=== PATIENT | male | born 1955 | race Caucasian/White ===

== ENCOUNTER → 2018-08-30 | Outpatient (CLI) | payer OTHER | END | disposition home or self-care (01) | LOC: M.MRI 08-02 06:43 → M.RAD 12:54 | DX: S73.191A Other sprain of right hip, initial encounter (principal); S76.311A Strain of muscle, fascia and tendon of the posterior muscle group at thigh level, right thigh, initial encounter; M24.151 Other articular cartilage disorders, right hip; M11.251 Other chondrocalcinosis, right hip; M76.02 Gluteal tendinitis, left hip; M85.48 Solitary bone cyst, other site; S46.012A Strain of muscle(s) and tendon(s) of the rotator cuff of left shoulder, initial encounter; X58.XXXA Exposure to other specified factors, initial encounter; Y93.89 Activity, other specified; Y92.89 Other specified places as the place of occurrence of the external cause; Y99.8 Other external cause status ==

== ENCOUNTER 2019-09-10 21:01 | Emergency (ER) | payer OTHER, MEDICARE ==
[~2019-09-10] VITALS: Ht 172.7 cm; Wt 79.4 kg
[2019-09-10] MEDS ORDERED: MOBIC7.5 MG PO (21:14)
[2019-09-10] MEDS ORDERED: CARISOPRODOL 3350 M1 PO (21:15)
[2019-09-10] MEDS ORDERED: OMEPRAZOLE 20 M20 M1 PO (21:15)
[2019-09-10] MEDS ORDERED: LORCET 5-325 M1 EACH PO (21:15)
[2019-09-10 21:35] LABS: ABSOLUTE BASOPHILS 0.1 thou/uL (0.0-0.2); ABSOLUTE EOSINOPHILS 0.1 thou/uL (0.0-0.7); ABSOLUTE MONOCYTES 1.7 thou/uL (0.0-1.2); ABSOLUTE NEUTROPHILS 9.4 thou/uL (1.6-8.1); BASOPHILS 0.6 %; EOSINOPHILS 0.6 %; HEMATOCRIT 38.5 % (42.0-52.0); HEMOGLOBIN 13.5 gm/dL (14.0-18.0); LYMPHOCYTES 15.4 %; MCH 30.4 pg (26.0-34.0); MCHC 35.2 g/dL (28.0-37.0); MCV 86.3 fL (80.0-100.0); MONOCYTES 12.5 %; MPV 6.1 fl. (7.2-11.1); NUCLEATED RBCS 0 /100WBC; PLATELET COUNT* 252 thou/uL (150-400); POLYS 70.9 %; RBC 4.46 mil/uL (4.50-6.00); RDW-CV 12.7 % (10.5-14.5); WBC 13.2 thou/uL (4.0-11.0)
[2019-09-10 21:46] LABS: ALBUMIN 3.4 g/dL (3.4-5.0); CALCIUM 9.1 mg/dL (8.5-10.1); CREATININE 1.1 mg/dL (0.6-1.3); TOTAL BILIRUBIN 0.5 mg/dL (<0.1-1.0); TOTAL PROTEIN 6.9 g/dL (6.4-8.2)
[2019-09-10 22:23] LABS: POTASSIUM 3.7 mmol/L (3.5-5.1)
[2019-09-10 22:38] LABS: ESR (SEDRATE) 25 mm/hr (0-20)
[2019-09-10] MEDS ORDERED: HYDROCODON-ACE1 EAC8 PO (23:17)
[2019-09-10] MEDS ORDERED: CLEOCIN HCL150 M1 PO (23:17)
[2019-09-10 23:46] LABS: TOTAL CELL COUNT >66000 /mm3
[2019-09-10 23:51] LABS: BF RBC 9588 /mm3
[2019-09-10 23:57] LABS: CLARITY TURBID; TOTAL VOLUME 35 ml
[2019-09-11 00:02] LABS: SOURCE LEFT KNEE
[2019-09-11 00:05] VITALS: BP 115/78
[2019-09-11 00:22] LABS: BF LYMPHOCYTES 2 %; BF MONOCYTES 5 %; BF POLYS 93 %
[2019-09-12 15:10] LABS: BODY FLUID LDH 554 IU/L (())
== END 2019-09-11 00:05 | disposition home or self-care (01) ==
LOC: M.ERS 21:01
PROVIDERS: Emergency Medicine
DX: M25.462 Effusion, left knee (principal); Z91.041 Radiographic dye allergy status; Z88.8 Allergy status to other drugs, medicaments and biological substances

== ENCOUNTER 2019-09-11 17:02 | Inpatient (IN) | payer OTHER, MEDICARE ==
[~2019-09-11] VITALS: Ht 152.4 cm; Wt 81.6 kg
[~2019-09-11 17:02] MED LIST: CARISOPRODOL 3350 M1 PO; CLEOCIN HCL150 M1 PO; HYDROCODON-ACE1 EAC8 PO; LORCET 5-325 M1 EACH PO; MOBIC7.5 MG PO; OMEPRAZOLE 20 M20 M1 PO
--- NOTE | 2019-09-11 17:20 | NUR ---
DIRECT ADMISSION FROM ORTHO CLINIC. PLEASANT 64Y/O MALE ADMITTED TO [address] FOR PAIN, SWELLING AND REDNESS OF LEFT KNEE SINCE WEDNESDAY. PATIENT ALERT AND ORIENTED, COOPERATIVE W/ ASSESS AND CARES. PRESENT AT TIME OF ADMISSION. PATIENT STATES HE IS UNABLE TO PUT WEIGHT ON HIS LLE AT THIS TIME D/T THE PAIN, FWW PLACED FOR PATIENT TO USE. PATIENT ENC TO USE FWW W/ SBA. REVIEW OF POC, ROOM AND CALL LIGHT DONE. PATIENT STATES VERBALLY OF UNDERSTANDING. PATIENT INFORMED HE IS TO BE NPO AFTER MN FOR PROCEDURE TOMORROW. ~TJRN
[2019-09-11 18:00] VITALS: BP 137/79
[2019-09-11 18:51] LABS: ABSOLUTE LYMPHOCYTES 1.1 thou/uL (0.8-5.3); ABSOLUTE MONOCYTES 1.3 thou/uL (0.0-1.2); ABSOLUTE NEUTROPHILS 13.2 thou/uL (1.6-8.1); BASOPHILS 0.2 %; EOSINOPHILS 0.1 %; HEMOGLOBIN 13.1 gm/dL (14.0-18.0); LYMPHOCYTES 7.3 %; MCHC 34.5 g/dL (28.0-37.0); MCV 87.1 fL (80.0-100.0); MONOCYTES 8.1 %; MPV 6.5 fl. (7.2-11.1); NUCLEATED RBCS 0 /100WBC; PLATELET COUNT* 244 thou/uL (150-400); POLYS 84.3 %; RBC 4.36 mil/uL (4.50-6.00); RDW-CV 12.8 % (10.5-14.5); WBC 15.7 thou/uL (4.0-11.0)
[2019-09-11 19:04] LABS: ALBUMIN 3.1 g/dL (3.4-5.0); CALCIUM 9.7 mg/dL (8.5-10.1); CREATININE 1.2 mg/dL (0.6-1.3); TOTAL BILIRUBIN 0.6 mg/dL (<0.1-1.0); TOTAL PROTEIN 7.1 g/dL (6.4-8.2)
[2019-09-11 19:59] LABS: ESR (SEDRATE) 55 mm/hr (0-20)
[2019-09-12 04:43] LABS: HEMATOCRIT 36.4 % (42.0-52.0); HEMOGLOBIN 12.5 gm/dL (14.0-18.0); MCH 30.3 pg (26.0-34.0); MCHC 34.4 g/dL (28.0-37.0); MPV 6.7 fl. (7.2-11.1); RBC 4.14 mil/uL (4.50-6.00); RDW-CV 12.8 % (10.5-14.5)
[2019-09-12 04:49] LABS: CALCIUM 9.4 mg/dL (8.5-10.1); MAGNESIUM 1.8 mg/dL (1.8-2.4)
[2019-09-12 07:04] VITALS: BP 145/78
--- NOTE | 2019-09-12 07:45 | NUR ---
PATIENT HAS SLEPT OFF AND ON DURING THE NIGHT. VSS ON RA. PAIN MEDICATION GIVEN ORDERED AND CHARTED. ASSESSMENT CHARTED. LEFT KNEE IS RED, EDEMATOUS AND WARM TO THE TOUCH. ID CONSULTED. PATIENT HAS REMAINED NPO SINCE MIDNIGHT D/T POSSIBLE I&D TODAY. IV IN LEFT FOREARM-NS @ 100ML/HR. IV ABT GIVEN WITHOUT ANY ADVERSE SIDE EFFECTS NOTED. PATIENT INSTRUCTED TO USE CALL LIGHT WHEN NEEDING ASSISTANCE. HOURLY ROUNDS MADE. WILL CONTINUE WITH PLAN OF CARE AND NURSING TO MONITOR.
--- NOTE | 2019-09-12 11:46 | CON ---
[address] [address] CONSULTATION Name: RAQUEL GRAY Room: [address] IN M.R.#: [id number] Admission: 09/11/19 Attend Phys: Beverly Villasenor MD Discharge: Date of : 53 Report #: [id number] THIS REPORT FOR: //name// CC: Jaciel Camacho [facility] physician/PCP Ángel Villasenor DATE OF SERVICE: 09/12/2019 INFECTIOUS DISEASE CONSULTATION ATTENDING PHYSICIAN: Dr. Villasenor. REASON FOR EVALUATION: Left knee septic arthritis. HISTORY OF PRESENT ILLNESS: Chart is reviewed and the patient is examined. This is a 64-year-old man with history of degenerative joint disease, who has undergone several injections of gel into his left knee, last one being 2 days prior to admission, had increasing pain and swelling associated with it. Due to worsening situation, he was evaluated in the emergency room and did have some sensation of fever and chills; appetite has been somewhat variable; denied significant pulmonary or gastrointestinal related complaints. Due to progressive nature of the pain and difficulty ambulating, he did undergo aspiration of the site. Gram stain showed no organisms although many wbcs. On extra quantification, cell count showed greater than 66,000 nucleated cells with 93% polys, 5% monocytes, 2% lymphs, red count was 9588, and lactic acid was 1.7. Due to concern about septic arthritis, he was admitted. He is scheduled to undergo operative evaluation. He is not encephalopathic. ALLERGIES: IODINE AND CELEBREX. CURRENT MEDICATIONS: Include vancomycin, pantoprazole, p.r.n. analgesics, and antiemetics. PAST MEDICAL HISTORY: High cholesterol, degenerative joint disease. SOCIAL HISTORY: Nonsmoker, occasional ethanol, no illicit drug use. FAMILY HISTORY: Noncontributory. REVIEW OF SYSTEMS: Otherwise unremarkable 10-point review of systems with exception of the above. PHYSICAL EXAMINATION: GENERAL: He is alert, cooperative, and appropriate. [place] [address] CONSULTATION Name: RAQUEL GRAY Room: [address] IN [facility].#: [id number] Admission: 09/11/19 Attend Phys: Beverly Villasenor MD Discharge: Date of : 53 Report #: [id number] distress secondary to the knee pain. He is quite protective and appears generally well nourished. VITAL SIGNS: Temperature 100.5, pulse 97, respirations 16, and blood pressure 145/78. SKIN: Warm, dry, no rashes. HEENT: Normocephalic. Extraocular muscles are intact. NECK: Supple. LUNGS: Clear to auscultation bilaterally. HEART: Regular; borderline tachycardic. I do not appreciate any murmur. ABDOMEN: Soft, nontender, nondistended. EXTREMITIES: Left knee showed moderate inflammatory changes; quite tender to palpation. No inclination to bend the knee. Distal pulses are palpable. GENITOURINARY/RECTAL: Deferred. LABORATORY DATA: Blood cultures are sterile thus far. Most recent electrolytes showed sodium 139, potassium 4.0, chloride 103, bicarbonate 27, anion gap of 9, BUN and creatinine 15 and 1.0. CBC: White count of 16.0, H and H 12.5 and 36.4, platelets of 226; sed rate of 55; CRP of less than 2.0; lactic acid 1.9; uric acid of 6.0. ASSESSMENT AND PLAN: Left knee septic arthritis. Post procedure, we would expect skin sores. I think vancomycin is reasonable. We will continue that as prescribed. Await findings at surgery including culture results should be obtained as well. At this point, there is no evidence of other infectious complications. We will add incentive spirometry. I discussed with the patient's spouse. <ELECTRONICALLY SIGNED> By: Ángel Weiner MD 09/12/19 1146 0953 [id number] Weiner MD /nt
--- NOTE | 2019-09-12 12:00 | NUR ---
SPOKE WITH PT.AND . HE IS NORMALLY INDEPENDENT AT HOME. HAS CRUTCHES AND HIS DAD'S WALKER IF NEEDED. NO HX OF HOME HEALTH OR SNF. DISCUSSED PROCESS OF TAKING CULTURES DURING SURGERY AND WAITING FOR RESULTS TO COME BACK TO DETERMINE WHAT ANTIBIOTIC HE WILL NEED. BRIEFLY DISCUSSED WORST CASE SCENERIO OF NEEDING TO GO HOME ON IV ANTIBIOTICS. HE FEELS HE COULD BE TAUGHT HOW TO INFUSE THEM. WILL DISCUSS FURTHER TOMORROW.
[2019-09-12 14:14] VITALS: BP 145/78
--- NOTE | 2019-09-12 16:09 | NUR ---
ASSESSMENT COMPLETE. PT ALERT AND ORIENTED X4. PRN PAIN MEDICATION GIVEN NEEDED. PT LEFT FOR SURGERY AT 1440. PT VSS. PT UP ONE ASSIST WITH WALKER. SEE ASSESSMENT AND VITALS FOR OTHER DETAILS. CALL LIGHT WITHIN REACH, WILL CONTINUE PLAN OF CARE
--- NOTE | 2019-09-12 16:57 | EKG ---
[place] [address] ELECTROCARDIOGRAM REPORT Name: RAQUEL GRAY Room: [address] ADM IN M.R.#: [id number] Admission: 09/11/19 Attend Phys: Beverly Villasenor MD Discharge: Date of : 53 Report #: [id number] THIS REPORT FOR: //name// [facility] Test Date: 2019-09-12 Test Time: 12:46:54 Pat Name: RAQUEL GRAY Department: Room: [address] Gender: M Application Infrastructure Engineer: : [id number] Requested By: Beverly Villasenor Order Number: [id number] Reading MD: Jaciel Guadarrama Measurements Intervals [place] Rate: 85 P: 56 [place]: 217 QRS: -15 QRSD: 90 T: 21 QT: 350 QTc: 417 Interpretive Statements Sinus rhythm Borderline prolonged [place] interval Abnormal R-wave progression, early transition Left ventricular hypertrophy No previous ECG available for comparison Electronically Signed On 09-12-2019 16:56:57 [employer] by Jaciel Guadarrama [email or web address] <ELECTRONICALLY SIGNED> By: Jaciel Guadarrama MD, [facility] 09/12/19 1656 1246 1246 Jaciel Guadarrama MD, FACC /EPI
[2019-09-12 20:10] VITALS: BP 123/68
[2019-09-12 23:35] VITALS: BP 119/70
[2019-09-13 02:07] LABS: GLYCOHEMOGLOBIN (HGB A1C) 5.4 % (4.8-5.6)
[2019-09-13 04:56] VITALS: BP 122/76
--- NOTE | 2019-09-13 07:15 | NUR ---
PATIENT HAS SLEPT WELL THROUGHOUT THE NIGHT. VSS ON RA. NO C/O PAIN. PATIENT HAS REMAINED WBAT AND STANDS UP TO USE URINAL. DRESSING TO LEFT KNEE IS C/D/I AND HEMOVAC IN PLACE WITH MODERATE AMOUNT OF SANGUINEOUS DRAINAGE. IV IN LEFT FOREARM-NS @ 100ML/HR. IV ABT GIVEN WITHOUT ANY ADVERSE SIDE EFFECTS NOTED. PATIENT INSTRUCTED TO USE CALL LIGHT WHEN NEEDING ASSISTANCE. HOURLY ROUNDS MADE. WILL CONTINUE WITH PLAN OF CARE AND NURSING TO MONITOR.
[2019-09-13 07:30] VITALS: BP 129/65
[2019-09-13 07:39] LABS: HEMATOCRIT 33.6 % (42.0-52.0); HEMOGLOBIN 11.4 gm/dL (14.0-18.0); MCH 29.8 pg (26.0-34.0); MCHC 33.9 g/dL (28.0-37.0); MCV 87.9 fL (80.0-100.0); MPV 6.5 fl. (7.2-11.1); RBC 3.82 mil/uL (4.50-6.00); RDW-CV 12.6 % (10.5-14.5); WBC 17.9 thou/uL (4.0-11.0)
[2019-09-13 07:47] LABS: MAGNESIUM 2.1 mg/dL (1.8-2.4); POTASSIUM 4.2 mmol/L (3.5-5.1)
[2019-09-13 15:53] VITALS: BP 140/71
--- NOTE | 2019-09-13 18:23 | NUR ---
ASSUMED CARE OF PATIENT AT APPROX 0730. ALERT AND ORIENTED X4. ASSESSMENT COMPLETED AND CHARTED. VSS ON ROOM AIR. PAIN MANAGED WITH ORAL PAIN MEDICATION. FLUIDS DISCONTINUED BUT PATIENT IS CONCENRED THAT DR BISHOP SAID HE SHOULD CONTINUE TO GET THEM, WILL CALL HOSPITALIST TO ADDRESS. NO OTHER COMPLAINTS THIS SHIFT. PATIENT IS UP AD SAGE USING WALKER. CALL LIGHT WITHIN REACH. HOURLY ROUNDS COMPLETED. WILL CONTINUE WITH PLAN OF CARE.
[2019-09-13 20:00] VITALS: BP 125/73
--- NOTE | 2019-09-14 04:33 | NUR ---
VSS ON RA. MEDS GIVEN ORDERED. PAIN WELL CONTROLLED BY [facility]. DRESSING TO LT KNEE C/D/I. HEMO VAC IN PLACE. PT UP INDEPENDENTLY IN THE ROOM WITH WALKER. NPO AT MIDNIGHT FOR POSSIBLE PROCEDURE. WILL CONTINUE TO MONITOR.
[2019-09-14 05:26] LABS: HEMOGLOBIN 10.2 gm/dL (14.0-18.0); MCHC 33.9 g/dL (28.0-37.0); MCV 88.4 fL (80.0-100.0); MPV 6.8 fl. (7.2-11.1); RBC 3.39 mil/uL (4.50-6.00); RDW-CV 12.9 % (10.5-14.5); WBC 14.2 thou/uL (4.0-11.0)
[2019-09-14 05:39] LABS: CALCIUM 9.2 mg/dL (8.5-10.1); POTASSIUM 4.2 mmol/L (3.5-5.1)
[2019-09-14 08:05] VITALS: BP 115/65
--- NOTE | 2019-09-14 10:50 | NUR ---
PATIENT ESCORTED OFF UNIT PER BED W/ SURGICAL STAFF PRESENT. NO ACUTE DISTRESS NOTED. ~TJRN
--- NOTE | 2019-09-14 14:05 | NUR ---
PATIENT RETURN TO PER BED FROM PACU W/ PACU STAFF PRESENT. REPORT REC'D FROM [employer] ACC[employer]S MANAGER. PATIENT AWAKE AND CONVERSANT. O2 2L/NC ON. BILAT FOOT SCDs ON. IV SITE NOTED WNL. DRSG TO LT KNEE CDI. HEMOVAC NOTED W/ SM AMT RED DRNG. PATIENT DENIES NEEDS AT THIS TIME. VS 97.7F-92-17, 127/78, 97% 2L/NC. CALL LIGHT IN REACH. PRESENT IN RM. ~TJRN
--- NOTE | 2019-09-14 16:00 | NUR ---
FAXED FACE SHEET,MED LIST AND H&P TO [facility] TO CHECK BENEFITS, IN CASE PT.NEEDS IVAB AT DISCHARGE.
--- NOTE | 2019-09-14 19:00 | NUR ---
HRLY ROUNDS DONE. PATIENT STATES HAVING PULLED OUT TUBING TO HEMOVAC FROM HEMOVAC CANISTER. 30ML SANG DRNG FROM VAC, VAC THEN "PRIMED" AGAIN. PATIENT INSTRUCTED TO MONITOR FOR ANY OTHER LEAKING OR CONCERNS. PATIENT STATES VERBALLY OF UNDERSTANDING. UP TO BR USING FWW W/ SBA PRN. DRSG TO LLE NOTED WNL. PATIENT STATES PAIN CONTROLLED AT THIS TIME. CALL LIGHT IN REACH. CAPNO ON, O2 ON 2L/NC, DOWN TO RA SAT VARIES WITH CONVERSATION. PATIENT PLACED ON 1L/NC AT 93-95% CURRENTLY. NO RESPS DISTRESS NOTED. NO FURTHER NURSING NEEDS AT THIS TIME. ~TJRN
[2019-09-14 19:50] VITALS: BP 113/71
[2019-09-15] VITALS (8 sets, daily range): BP systolic 106–143; BP diastolic 64–72
--- NOTE | 2019-09-15 02:19 | NUR ---
INITAL ASSESMENT COMPLETED AT 1949. PT RESTING QUIETLY IN BED AT THAT TIME. PT WITH LEFT LEG ELEVATED ON PILLOW. PT GIVEN PRN [facility]CO FOR REPORT OF PAIN AT THAT TIME. CALL LIGHT IN REACH, PT DEMONSTRATES PROPER USE.
[2019-09-15 04:11] LABS: HEMATOCRIT 29.1 % (42.0-52.0); HEMOGLOBIN 10.1 gm/dL (14.0-18.0); MCH 30.3 pg (26.0-34.0); MCHC 34.5 g/dL (28.0-37.0); MCV 87.9 fL (80.0-100.0); MPV 6.4 fl. (7.2-11.1); RBC 3.31 mil/uL (4.50-6.00); RDW-CV 12.4 % (10.5-14.5); WBC 13.1 thou/uL (4.0-11.0)
[2019-09-15 04:19] LABS: CALCIUM 9.2 mg/dL (8.5-10.1); CREATININE 0.9 mg/dL (0.6-1.3); MAGNESIUM 2.3 mg/dL (1.8-2.4); POTASSIUM 4.1 mmol/L (3.5-5.1)
--- NOTE | 2019-09-15 06:12 | NUR ---
DC'D IV IN LEFT FOREARM PER PT'S REQUEST. STARTED 20 GUAGE SALINE LOCK IN RIGHT FOREARM.
[2019-09-15] MEDS ORDERED: DICLOXACILLIN250 M2 PO (09:25)
[2019-09-15] MEDS ORDERED: ASPIR 8181 MG PO (09:25)
--- NOTE | 2019-09-15 10:18 | NUR ---
PT GIVEN DISCHARGE INFORMATION, CARE NOTES, AND PRESCRIPTIONS. IV REMOVED. PT GIVEN [employer] DRESSING SUPPLIES FOR DRESSING CHANGES. FALL RISK PRECAUTIONS IN PLACE. HOURLY ROUNDING COMPLETED. PT LEFT VIA WHEELCHAIR WITH NURSING STAFF TO HOME.
--- NOTE | 2019-09-20 11:53 | OP ---
[address] [address] OPERATIVE REPORT Name: RAQUEL GRAY Room: [address] IN M.R.#: [id number] Admission: 09/11/19 Attend Phys: Beverly Villasenor MD Discharge: 09/15/19 Date of : 53 Report #: [id number] THIS REPORT FOR: //name// CC: Jaciel Camacho [facility] physician/PCP Ángel Villasenor DATE OF SERVICE: 09/12/2019 PREOPERATIVE DIAGNOSIS: Septic arthritis, left knee. POSTOPERATIVE DIAGNOSIS: Septic arthritis, left knee. OPERATION PERFORMED: Left knee arthroscopic surgery with 3 compartment synovectomy for infection. SURGEON: Gume Corrigan DO. ROUSTABOUT HEAD: Yamil Harman. ANESTHESIA: General. GROSS PATHOLOGY: There was evidence of purulent type material in the left knee. Upon inserting the cannula, approximately 40 mL of the purulent material was noted. There was also some minor erythema to the medial aspect of the left knee joint region. There were no abrasions or ulcers in the area. There was tricompartmental arthritis to the left knee. Debridement was excisional of the soft tissue synovium tissue by shaving the tissue with arthroscopy shaver system as well as mechanical debridement with irrigating the material with the fluid irrigation. DESCRIPTION OF PROCEDURE: The patient was brought to the operating room where general anesthetic was administered. He is on scheduled antibiotics. A Betadine scrub and prep was done to the left leg. The patient was draped in a sterile manner. The suprapatella incision was then made with the inflow cannula inserted into this area with the fluid being obtained as described above. Normal saline was introduced. He has previous scars anterolateral and anteromedial from a previous knee scope and these were utilized anterolateral for the arthroscope into the anteromedial medial through the arthroscopy shaver system. Viewing was begun in the patella and suprapatellar area with advanced DJD. There was hypertrophied synovium noted as well as the medial gutter, medial joint space, and lateral joint space and lateral gutter. There was no major glycocalyx on the bony surface. There was evidence of probable medial meniscectomy. There were some degenerative changes [place] [address] OPERATIVE REPORT Name: RAQUEL GRAY Room: [facility] IN .R.#: [id number] Admission: 09/11/19 Attend Phys: Beverly Villasenor MD Discharge: 09/15/19 Date of : 53 Report #: [id number] The patient was brought to the operating room where general anesthetic was administered. Description of debridement as stated above. Upon completion of the three compartment synovectomy with the arthroscopy shaver system, the knee was then thoroughly irrigated with the lavage material. The knee was taken through a range of motion, which also acted as a cleaning mechanism, which acted as mechanical debridement as the surgical debridement was done with arthroscopy shaver system. The fluid ran clear. The excess fluid was drained from the knee through the anteromedial portal site. A Hemovac drain was placed into position. Skin incisions were closed with interrupted 5-0 nylon suture. Sterile dressing was applied. The patient was transferred to recovery room in good condition. Blood loss was approximately 10 mL. <ELECTRONICALLY SIGNED> By: Rolando Guo DO 09/20/19 1153 1707 Sherry Corrigan DO /nt
--- NOTE | 2019-09-20 11:54 | OP ---
[address] [address] OPERATIVE REPORT Name: RAQUEL GRAY Room: [address] IN M.R.#: [id number] Admission: 09/11/19 Attend Phys: Beverly Villasenor MD Discharge: 09/15/19 Date of : 53 Report #: [id number] THIS REPORT FOR: //name// CC: Jaciel Camacho [facility] physician/PCP Ángel Villasenor DATE OF SERVICE: 09/14/2019 PREOPERATIVE DIAGNOSIS: Septic arthritis, left knee. POSTOPERATIVE DIAGNOSIS: Septic arthritis, left knee. OPERATION PERFORMED: Repeat arthroscopic surgery, debridement and lavage for infection with 3-compartment synovectomy, left knee. SURGEON: Gume Corrigan DO. TEXTILES PRINTER: Chriss Alexander DO ANESTHESIA: General. GROSS PATHOLOGY: This patient has had septic arthritis to the left knee. He has arthritis 3-compartment of the left knee. Previously, purulent material was noted on the first I and D surgery with Staph being grown out on the cultures. At this time, there was less synovectomy, but there was 3-compartment synovectomy persisting. There was no purulent material noted upon insertion of the cannula, only minor bloody discharge. Estimated blood loss during the surgery approximately 30 mL. DESCRIPTION OF PROCEDURE: The patient was brought to the operating room where general anesthetic was administered. He was on scheduled antibiotics. A Hibiclens scrub and a ChloraPrep, prep were done to the left leg, the patient was draped in a sterile manner. The sutures were removed. The Hemovac drain had been removed. Utilizing the previous portals, the inflow cannula normal saline was introduced through the medial suprapatellar portal to arthroscope through the anterolateral portal and the arthroscopy shaver system through the anteromedial portal. Viewing was begun in the compartments of the patella, joint spaces and gutters, which revealed mild synovitis, DJD was noted. By means of arthroscopy shaver system, a 3-compartment synovectomy was performed. The knee was then further irrigated with normal saline, until the normal saline ran clear. The knee was further inspected and no purulent material was noted. The Hemovac tubing was placed through the anteromedial portal. The portal sites were closed with interrupted 4-0 nylon suture. Sterile dressing was applied. The patient was transferred to the recovery [place] [address] OPERATIVE REPORT Name: MARINARAQUEL Zepeda Room: [address] IN [facility].#: [id number] Admission: 09/11/19 Attend Phys: Beverly Villasenor MD Discharge: 09/15/19 Date of : 53 Report #: [id number] The debridement was done by excisional of the subcutaneous synovial tissue sharply with the arthroscopy shaver system as well as mechanical by flushing and massaging the tissue. <ELECTRONICALLY SIGNED> By: Rolando Guo DO 09/20/19 1154 1303 1619Gume Corrigan DO /nt
== END 2019-09-15 10:24 | disposition home or self-care (01) | DRG 486 ==
LOC: M.ORTHSURG 17:02
PROVIDERS: ADMIT Internal Medicine
PROC: 0SBD4ZZ Excision of Left Knee Joint, Percutaneous Endoscopic Approach (ICD-10-PCS; principal; 2019-09-12)
PROC: 0SBD4ZZ Excision of Left Knee Joint, Percutaneous Endoscopic Approach (ICD-10-PCS; 2019-09-14)
DX: M00.062 Staphylococcal arthritis, left knee (principal); R65.10 Systemic inflammatory response syndrome (SIRS) of non-infectious origin without acute organ dysfunction; E78.00 Pure hypercholesterolemia, unspecified; M65.9 Synovitis and tenosynovitis, unspecified; E78.5 Hyperlipidemia, unspecified; B95.61 Methicillin susceptible Staphylococcus aureus infection as the cause of diseases classified elsewhere; M19.90 Unspecified osteoarthritis, unspecified site; Z88.8 Allergy status to other drugs, medicaments and biological substances; Z91.041 Radiographic dye allergy status

== ENCOUNTER → 2019-11-28 | Outpatient (CLI) | payer MEDICARE, OTHER ==
[~2019-11-28] MED LIST changes: +ASPIR 8181 MG PO; +DICLOXACILLIN250 M2 PO
== END ==
LOC: M.MRI 11-14 13:30
DX: M75.41 Impingement syndrome of right shoulder (principal); M77.9 Enthesopathy, unspecified

== ENCOUNTER → 2020-09-11 | Outpatient (CLI) | payer MEDICARE, OTHER ==
--- NOTE | 2020-09-23 17:05 | SLEEP ---
[address] [address] SLEEP STUDY REPORT Name: RAQUEL GRAY Room: [facility]#: [id number] Admission: 09/11/20 Attend Phys: Bhavin Diaz MD Discharge: Date of : 53 Report #: [id number] THIS REPORT FOR: cc: Gume Decker MD, Michael L. MD ~ Bhavin Diaz MD This study has been reviewed in its entirety by a board certified sleep specialist DATE OF SERVICE: 09/11/2020 SLEEP STUDY INDICATION FOR SLEEP STUDY: Excessive daytime sleepiness. INTERPRETATION: Total duration of the study is 374 minutes out of which he was asleep for 215 minutes with an overall sleep efficiency of 57%. Sleep onset initially occurred 27 minutes after lying down in bed and REM onset was 277 minutes after sleep onset. N1 sleep duration was 12%, N2 duration was 43%, N3 duration is 35% and REM duration was 10%. We did record multiple sleep related respiratory events. These included 9 central apneas, 5 obstructive apneas, 69 hypopneas and 17 respiratory effort related arousals. Overall, apnea-hypopnea index was 23.2. Body position data indicates the patient was observed asleep in the supine position for 93 minutes. The rest of the time, the patient was in other positions. Mean heart rate was 65. Periodic limb movement index was normal at 7.0. Arousal index was mildly elevated at 29. The patient did have multiple desaturations. Overall, the patient spent 9 minutes below an O2 saturation of 90%, out of which 0.9 minutes were spent below an O2 saturation of 88%. The patient's EKG is reported to be in sinus rhythm with some premature ventricular contractions noted. IMPRESSION: Obstructive sleep apnea with an apnea-hypopnea index of 23.2 with mild nocturnal hypoxemia as described above. RECOMMENDATIONS: 1. Recommend proceeding to a repeat sleep study for positive airway pressure titration. 2. Recommend avoiding driving or other activities requiring vigilance [place] [address] SLEEP STUDY REPORT Name: RAQUEL GRAY Room: [facility]#: [id number] Admission: 09/11/20 Attend Phys: Bhavin Diaz MD Discharge: Date of : 53 Report #: [id number] This entire sleep study was reviewed by board certified sleep physician. <ELECTRONICALLY SIGNED> By: Bhavin Diaz MD 09/23/20 1705 1245 1305Aayleen Diaz MD /nt
== END ==
LOC: M.SLEEPLAB 07-31 20:00
PROVIDERS: ATTEND Internal Medicine Critical Care Medicine
DX: G47.33 Obstructive sleep apnea (adult) (pediatric) (principal); R09.02 Hypoxemia; G47.09 Other insomnia

== ENCOUNTER → 2020-10-15 | Outpatient (CLI) | payer MEDICARE, OTHER ==
--- NOTE | 2020-10-27 22:09 | SLEEP ---
[address] [address] SLEEP STUDY REPORT Name: RAQUEL GRAY Room: [facility]#: [id number] Admission: 10/15/20 Attend Phys: Bhavin Diaz MD Discharge: Date of : 53 Report #: [id number] THIS REPORT FOR: cc: Gume Decker MD, Michael L. MD ~ Bhavin Diaz MD This study has been reviewed in its entirety by a board certified sleep specialist DATE OF SERVICE: 10/15/2020 INDICATION FOR SLEEP STUDY: Positive airway pressure titration. The patient was diagnosed with obstructive sleep apnea during the last sleep study. INTERPRETATION: Total duration of the study is 362 minutes out of which the patient is already asleep for 174 minutes with an overall sleep efficiency markedly decreased to 48.2%. Sleep onset initially occurred 10 minutes after lying down in bed; however, wake after sleep onset time is significantly elevated to 118 minutes. REM onset was delayed to 204 minutes after sleep onset. N1 sleep duration is 14%, N2 duration is 40%, N3 duration is 36% and REM duration is 11%. Mean hear rate is 63. Periodic limb movement index is normal at 5.9. Arousal index is elevated to 37.5 and there is sleep fragmentation observed. This is a CPAP titration. A review of the CPAP titration indicates the patient is titrated beginning with a CPAP pressure of 7 cm of water, gradually increasing it to 12 cm of water. However, considering that the patient was awake for most of this night, adequate evaluation of the patient's optimal positive airway pressure therapy was not possible during the sleep study. IMPRESSION: Obstructive sleep apnea with nocturnal hypoxemia as previously diagnosed during the last sleep study. The patient requires positive airway pressure therapy while asleep. The patient's optimal positive airway pressure therapy could not be determined based on this sleep study due to the fact that the patient was awake for majority of this sleep study duration. RECOMMENDATIONS: I would initially go ahead and place the patient on a CPAP auto titrated device with a CPAP pressure of 5 cm of water to 15 cm of water with mask per patient preference while asleep with heated humidity. We will initially prescribe Respironics Yodit large mask with C-Flex of 3, which was [place] [address] SLEEP STUDY REPORT Name: RAQUEL GRAY Room: [facility]#: [id number] Admission: 10/15/20 Attend Phys: Bhavin Diaz MD Discharge: Date of : 53 Report #: [id number] After the patient has used CPAP auto titrated device for a couple of months and has gotten accustomed to the use of CPAP, I inclined to bring the patient back to the Sleep Lab and perform a repeat positive airway pressure titration to evaluate his optimal CPAP or BiPAP needs. I recommend avoiding driving or other activities requiring vigilance if drowsy. This entire sleep study was reviewed by board certified sleep physician. <ELECTRONICALLY SIGNED> By: Bhavin Diaz MD 10/27/20 2209 2020 2036Aayleen Diaz MD /nt
== END ==
LOC: M.SLEEPLAB 20:56
PROVIDERS: ATTEND Internal Medicine Critical Care Medicine
DX: G47.33 Obstructive sleep apnea (adult) (pediatric) (principal)

== ENCOUNTER → 2020-12-12 | Outpatient (CLI) | payer MEDICARE, OTHER | LOC: M.LAB 11:52 | PROVIDERS: ATTEND Orthopaedic Surgery | DX: Z01.812 Encounter for preprocedural laboratory examination (principal); Z20.822 Contact with and (suspected) exposure to COVID-19; M67.441 Ganglion, right hand ==

== ENCOUNTER → 2021-09-18 | Outpatient (CLI) | payer MEDICARE, OTHER | LOC: M.MRI 09-12 14:35 | PROVIDERS: ATTEND Orthopaedic Surgery | DX: M19.012 Primary osteoarthritis, left shoulder (principal); M19.011 Primary osteoarthritis, right shoulder; G89.29 Other chronic pain; M25.512 Pain in left shoulder ==

== ENCOUNTER → 2021-10-06 | Outpatient (CLI) | payer MEDICARE, OTHER | LOC: M.MRI 14:09 | PROVIDERS: ATTEND Orthopaedic Surgery | DX: M18.12 Unilateral primary osteoarthritis of first carpometacarpal joint, left hand (principal); M65.842 Other synovitis and tenosynovitis, left hand; R20.0 Anesthesia of skin; R20.2 Paresthesia of skin ==